=== PATIENT | male | born 1960 | race Caucasian/White ===

== ENCOUNTER 2021-07-02 01:05 | Emergency (ER) | payer OTHER ==
[~2021-07-02] VITALS: Ht 162.6 cm; Wt 90.9 kg
[2021-07-02 01:17] VITALS: BP 151/84
== END 2021-07-02 03:47 | disposition home or self-care (01) ==
LOC: ER 01:06
DX: F41.1 Generalized anxiety disorder (principal); R06.02 Shortness of breath
CPT/HCPCS: 93005; 99283